=== PATIENT | male | born 1985 | race Caucasian/White ===

== ENCOUNTER 2018-10-25 15:25 | Emergency (ER) | payer MEDICAID ==
[~2018-10-25] VITALS: Ht 180.3 cm; Wt 84.8 kg
[2018-10-25 15:30] VITALS: BP 160/102
--- NOTE | 2018-10-25 15:38 | NUR ---
PT TO CHAIR
[2018-10-25] MEDS ORDERED: MIC5 PO (15:39)
[2018-10-25] MEDS ORDERED: SITA50TA3 PO (15:40)
[2018-10-25] MEDS ORDERED: METF500T2 PO (15:41)
--- NOTE | 2018-10-25 16:00 | NUR ---
PT BIB SELF FOR LEFT HAND N/T FOR 3 DAYS, DENIES TRAUMA OR INJURY, +CMS, DENIES PAIN TO HAND. PMH DM
[2018-10-25 16:31] VITALS: BP 156/98
== END 2018-10-25 16:30 | disposition home or self-care (01) ==
LOC: MED 15:25
DX: E11.40 Type 2 diabetes mellitus with diabetic neuropathy, unspecified (principal); Z79.84 Long term (current) use of oral hypoglycemic drugs; Z79.899 Other long term (current) drug therapy
CPT/HCPCS: 82948; 99283

== ENCOUNTER 2019-02-14 18:20 | Emergency (ER) | payer MEDICAID ==
[~2019-02-14] VITALS: Ht 180.3 cm; Wt 90.7 kg
[~2019-02-14 18:20] MED LIST: METF500T2 PO; MIC5 PO; SITA50TA3 PO
[2019-02-14 18:25] VITALS: BP 153/81
--- NOTE | 2019-02-14 18:35 | NUR ---
PT AMB TO BED 2.
--- NOTE | 2019-02-14 18:54 | NUR ---
PT PRESENTS TO THE ED WITH C/O BILATERAL ARM CRAMPING AT ELBOW RADIATING TO FINGERS AND BILATERAL CRAMPING AT THIGHS RADIATING TO TOES X TODAY. PT STATES PAIN FEELS LIKE CRAMPING AND RATES PAIN 5/10 AT THIS TIME. +CSM. PT STATES THAT HE TOOK TYLENOL FOR PAIN EARLIER TODAY. PT DENIES N/V/D, CP, AND SOB AT THIS TIME. PT PRESENTS WITH A CLEAR SPEECH AND CONVERSES APPROPRIATELY. PT SKIN IS PINK, WARM, AND DRY. FAMILY MEMBER AT BEDSIDE. PT POSITIONED FOR COMFORT, HOB ELEVATED, BED RAIL UP X 1 FOR PT SAFETY. ER MD TO SEE PT. ROD HX: DM, HTN RX: METFORMIN, JUNIVIA, GLIPIZIDE, ASPIRIN, LIPITOR
--- NOTE | 2019-02-14 19:09 | NUR ---
Patient appears to be resting comfortably in bed speaking with family member. Respirations even and unlabored. Will continue to monitor.
[2019-02-14] MEDS ORDERED: KETOROLAC 60 MG/2 ML VIAL IM ONE (19:50)
[2019-02-14 20:05] LABS: BASOPHILS # (AUTO) 0.1 K/uL (0.00-0.22); BASOPHILS % (AUTO) 0.9 % (0.0-2.0); EOSINOPHILS # (AUTO) 0.4 K/uL (0-0.4); EOSINOPHILS % (AUTO) 3.2 % (0.0-4.0); HEMATOCRIT 35.9 % (36-52); HEMOGLOBIN 11.8 g/dL (12.0-18.0); LYMPHOCYTES # (AUTO) 3.6 K/uL (2.0-11.5); LYMPHOCYTES % (AUTO) 31.9 % (20.5-51.1); MEAN CORPUSCULAR HEMOGLOBIN 27 pg (27-31); MEAN CORPUSCULAR HGB CONC 33 g/dL (33-37); MEAN CORPUSCULAR VOLUME 83.3 fL (80-94); MONOCYTES # (AUTO) 0.8 K/uL (0.8-1.0); MONOCYTES % (AUTO) 6.7 % (1.7-9.3); NEUTROPHILS # (AUTO) 6.4 K/uL (1.8-7.7); NEUTROPHILS % (AUTO) 57.3 % (42.2-75.2); PLATELET COUNT (AUTO) 216 K/uL (140-450); RED BLOOD CELL COUNT(AUTO) 4.31 MIL/uL (4.20-6.10); RED CELL DISTRIBUTION WIDTH 13.7 % (11.6-13.7); WHITE BLOOD COUNT (AUTO) 11.2 K/uL (4.8-10.8)
[2019-02-14 20:21] LABS: ALBUMIN 2.3 g/dL (3.4-5.0); ANION GAP 13.2 (8-16); CARBON DIOXIDE 28.4 mmol/L (21-32); CREATININE 2.3 mg/dL (0.7-1.3); POTASSIUM 4.6 mmol/L (3.5-5.1); TOTAL BILIRUBIN 0.1 mg/dL (0.0-1.0)
[2019-02-14] MEDS ORDERED: NACL 0.9% 1,000 ML IV ONE (20:35)
--- NOTE | 2019-02-14 20:50 | NUR ---
INFLUENZA SWAB COLLECTED
--- NOTE | 2019-02-14 21:11 | NUR ---
Pt report given to OMAR BOOGIE. Transfer of care at this time.
[2019-02-14] MEDS ORDERED: INSULIN REGULAR, HUMAN 100 UNIT/ML VIAL IVP ONE (22:00)
--- NOTE | 2019-02-14 22:00 | NUR ---
PT RESTING IN BED CALM AND PLEASANT. DENIES PAIN AT THIS TIME. VSS. WILL CONTINUE TO MONITOR.
== END 2019-02-14 22:30 | disposition home or self-care (01) ==
LOC: MED 18:20
DX: E11.22 Type 2 diabetes mellitus with diabetic chronic kidney disease (principal); E11.65 Type 2 diabetes mellitus with hyperglycemia; I12.9 Hypertensive chronic kidney disease with stage 1 through stage 4 chronic kidney disease, or unspecified chronic kidney disease; N18.9 Chronic kidney disease, unspecified; Z79.84 Long term (current) use of oral hypoglycemic drugs; Z79.899 Other long term (current) drug therapy
CPT/HCPCS: 36415; 80053; 82553; 85025; 87804; 96361; 96372; 96374; 99283; J1815; J1885; J7030

== ENCOUNTER 2019-07-07 17:02 | Emergency (ER) | payer MEDICAID ==
[~2019-07-07] VITALS: Ht 172.7 cm; Wt 87.1 kg
[2019-07-07 17:15] VITALS: BP 158/90
[2019-07-07 18:12] VITALS: BP 158/90
== END 2019-07-07 18:12 | disposition home or self-care (01) ==
LOC: MED 17:02
DX: H60.92 Unspecified otitis externa, left ear (principal); E11.9 Type 2 diabetes mellitus without complications; I10 Essential (primary) hypertension; Z79.84 Long term (current) use of oral hypoglycemic drugs; Z79.899 Other long term (current) drug therapy
CPT/HCPCS: 99283

== ENCOUNTER 2019-07-08 17:18 | Emergency (ER) | payer MEDICAID ==
[~2019-07-08] VITALS: Ht 170.2 cm; Wt 84.8 kg
[2019-07-08 17:26] VITALS: BP 146/79
--- NOTE | 2019-07-08 17:34 | NUR ---
PT AMB TO BED 02 STEADY GAIT
--- NOTE | 2019-07-08 17:36 | NUR ---
33/M C/O LEFT INNER EAR AND LEFT POSTAURICULAR PAIN X 4 DAYS. WAS SEEN HERE YESTERDAY, DX EAR INFECTION AND RX WITH EARDROPS WHICH PT HAS STARTED USING BUT EXPERIENCED NO RELIEF. VSS. NAD. HX- DENIES
--- NOTE | 2019-07-08 17:37 | NUR ---
STATES POSTAURICULAR "BUMP"
--- NOTE | 2019-07-08 17:40 | NUR ---
DR DAY EVALUATING PT AT BEDSIDE
[2019-07-08 17:50] VITALS: BP 146/79
== END 2019-07-08 17:46 | disposition home or self-care (01) ==
LOC: MED 17:18
DX: H60.92 Unspecified otitis externa, left ear (principal); H66.92 Otitis media, unspecified, left ear; I10 Essential (primary) hypertension; E11.9 Type 2 diabetes mellitus without complications; Z79.84 Long term (current) use of oral hypoglycemic drugs; Z79.899 Other long term (current) drug therapy
CPT/HCPCS: 99283

== ENCOUNTER 2021-10-08 06:25 | Emergency (ER) | payer MEDICAID ==
[~2021-10-08] VITALS: Ht 180.3 cm; Wt 79.4 kg
[~2021-10-08 06:25] MED LIST changes: +GLYB-200 PO; +METF-1139 PO; -METF500T2 PO; -MIC5 PO
[2021-10-08 06:35] VITALS: BP 130/84
--- NOTE | 2021-10-08 06:40 | NUR ---
TO BED AMBULATORY
--- NOTE | 2021-10-08 07:19 | NUR ---
Dr. Xie evaluating patient at bedside.
--- NOTE | 2021-10-08 07:24 | NUR ---
Pt report given to CHRISTOPHER ELLINGTON. Transfer of care at this time.
--- NOTE | 2021-10-08 07:25 | NUR ---
Report recieved OMAR Reyes for transfer of care.
[2021-10-08] MEDS ORDERED: COROTSOL LEFT EAR (07:32)
[2021-10-08] MEDS ORDERED: IBUP-2213 PO (07:32)
--- NOTE | 2021-10-08 07:50 | NUR ---
Patient discharged with v/s stable. Written and verbal after care instructions given. Patient alert, oriented and verbalized understanding of instructions. Ambulatory with steady gait. All questions addressed prior to discharge. ID band removed. Patient advised to follow up with PMD. Rx of Cortisporin Otic Solution and Ibuprofen given. Opportunity to ask questions provided and answered.
--- NOTE | 2021-10-08 07:51 | NUR ---
The patient's care was reviewed and supervised by Rosalinda Marroquin RN.
== END 2021-10-08 07:50 | disposition home or self-care (01) ==
LOC: MED 06:25
DX: H60.92 Unspecified otitis externa, left ear (principal); E11.9 Type 2 diabetes mellitus without complications; I10 Essential (primary) hypertension; F17.200 Nicotine dependence, unspecified, uncomplicated; Z79.84 Long term (current) use of oral hypoglycemic drugs; Z79.899 Other long term (current) drug therapy
CPT/HCPCS: 99283